=== PATIENT | female | born 1935 | race Caucasian/White ===

== ENCOUNTER 2017-05-21 13:01 | Inpatient (IN) | payer MEDICARE, BC, OTHER ==
[~2017-05-21] VITALS: Ht 167.6 cm; Wt 59.2 kg
[~2017-05-21 13:01] MED LIST: ARIP15TA8 PO; ATI0.5T PO; CYA500T PO; DOCU50LI22 PO; DONE10TA6 PO; INUL1TAB4; MEMA5TAB40 PO; SYN0.088T PO; VALP250S3 PO
[2017-05-21 14:36] VITALS: BP 106/77
[2017-05-21] MEDS ORDERED: magnesium Cl slow-release 64mg tablet PO PRN (15:40)
[2017-05-21] MEDS ORDERED: acetaminophen 325mg tablet PO PRN ×2 (15:40)
[2017-05-21] MEDS ORDERED: mag hydrox/Alum hydrox/simeth 30ml oral suspension PO PRN (15:40)
[2017-05-21] MEDS ORDERED: potassium Cl 20 mEq SR tablet PO PRN (15:40)
[2017-05-21] MEDS ORDERED: magnesium hydroxide 30ml (MOM) UD suspension PO PRN (15:40)
[2017-05-21] MEDS: K and/or MAG REPLACEMENT MC SCH (15:40)
[2017-05-21] MEDS ORDERED: magnesium 4gm in 100ml NS 100 ML IV PRN (15:40)
[2017-05-21] MEDS ORDERED: heparin 10,000 units/1 ML INJ IV ONE (15:40)
[2017-05-21] MEDS ORDERED: potassium Cl 40MEQ/NS 500ml 500 ML IV PRN ×2 (15:40)
[2017-05-21] MEDS ORDERED: magnesium 2GM in 50ml NS 50 ML IV PRN (15:40)
[2017-05-21] MEDS ORDERED: ondansetron/PF 4mg/2ml inj IV PRN (15:40)
[2017-05-21 16:07] LABS: BASOPHILS # (AUTO) 0.1 X10'3 (0-0.2); BASOPHILS % (AUTO) 0.9 % (0-1); EOSINOPHILS # (AUTO) 0.2 X10'3 (0-0.9); HEMATOCRIT 36.1 % (35.0-45.0); HEMOGLOBIN 12.3 g/dl (12.0-16.0); LYMPHOCYTES # (AUTO) 1.5 X10'3 (1.1-4.8); LYMPHOCYTES % (AUTO) 18.7 % (21-51); MEAN CORPUSCULAR HGB CONC 34.1 % (33.0-36.5); MEAN PLATELET VOLUME 7.7 FL (7.4-10.4); MONOCYTES # (AUTO) 0.6 X10'3 (0-0.9); MONOCYTES % (AUTO) 8.3 % (2-12); NEUTROPHILS # (AUTO) 5.5 X10'3 (1.8-7.7); NEUTROPHILS % (AUTO) 70.1 % (42-75); PLATELET COUNT 259 X10'3 (140-440); RED BLOOD COUNT 3.97 X10'6 (4.20-5.60); RED CELL DISTRIBUTION WIDTH 15.1 % (11.5-14.5); WHITE BLOOD COUNT 7.8 X10'3 (4.5-11.0)
[2017-05-21 16:18] LABS: PARTIAL THROMBOPLASTIN TIME 32 SECONDS (22-32)
[2017-05-21 16:23] LABS: ALANINE AMINOTRANSFERASE 19 U/L (12-78); ALBUMIN/GLOBULIN RATIO 0.9 (1.1-1.5); ALKALINE PHOSPHATASE 56 IU/L (46-116); ANION GAP 6 (8-16); ASPARTATE AMINO TRANSFERASE 14 U/L (10-37); BILIRUBIN,TOTAL 0.4 MG/DL (0.1-1.0); BLOOD UREA NITROGEN 10 MG/DL (7-18); CALCIUM 8.8 MG/DL (8.5-10.1); CHLORIDE 102 MMOL/L (99-107); CREATININE 1.25 MG/DL (0.40-0.90); GLUCOSE 104 MG/DL (70-104); MAGNESIUM 1.8 MG/DL (1.5-2.4); POTASSIUM 4.1 MMOL/L (3.5-5.1); SODIUM 135 MMOL/L (135-145); TOTAL CARBON DIOXIDE 27.4 MMOL/L (24-32); TOTAL PROTEIN 6.5 G/DL (6.4-8.2); eGFR 41 ML/MIN
[2017-05-21] MEDS: CEFAZOLIN SODIUM/NORMAL SALINE 100 ML IV SCH (16:53)
[2017-05-21 20:00] VITALS: BP 124/57
[2017-05-21] MEDS ORDERED: temazepam 15mg capsule PO PRN (21:00)
[2017-05-22] VITALS: BP 140/71
[2017-05-22 00:58] LABS: PARTIAL THROMBOPLASTIN TIME 43 SECONDS (22-32)
[2017-05-22] MEDS: CEFAZOLIN SODIUM/NORMAL SALINE 100 ML IV SCH ×3 (01:51→16:18)
[2017-05-22] MEDS: heparin 10,000 units/1 ML INJ IV PRN ×2 (01:55→17:46)
[2017-05-22 03:30] VITALS: BP 150/83
[2017-05-22 05:38] LABS: BASOPHILS # (AUTO) 0.1 X10'3 (0-0.2); BASOPHILS % (AUTO) 0.8 % (0-1); EOSINOPHILS # (AUTO) 0.2 X10'3 (0-0.9); EOSINOPHILS % (AUTO) 2.9 % (0-6); HEMATOCRIT 35.1 % (35.0-45.0); HEMOGLOBIN 11.9 g/dl (12.0-16.0); LYMPHOCYTES # (AUTO) 1.4 X10'3 (1.1-4.8); LYMPHOCYTES % (AUTO) 20.2 % (21-51); MEAN CORPUSCULAR HGB CONC 34.1 % (33.0-36.5); MEAN CORPUSCULAR VOLUME 91.2 FL (78-98); MEAN PLATELET VOLUME 8.6 FL (7.4-10.4); MONOCYTES # (AUTO) 0.4 X10'3 (0-0.9); MONOCYTES % (AUTO) 6.2 % (2-12); NEUTROPHILS # (AUTO) 4.8 X10'3 (1.8-7.7); NEUTROPHILS % (AUTO) 69.9 % (42-75); PLATELET COUNT 232 X10'3 (140-440); RED BLOOD COUNT 3.85 X10'6 (4.20-5.60); WHITE BLOOD COUNT 6.9 X10'3 (4.5-11.0)
[2017-05-22 06:54] LABS: ALBUMIN 2.9 G/DL (3.4-5.0); ANION GAP 11 (8-16); BLOOD UREA NITROGEN 9 MG/DL (7-18); BUN/CREATININE RATIO 7.9 (6.6-38.0); CHLORIDE 104 MMOL/L (99-107); CHOL/HDL RATIO 5.2 (0.00-4.99); CHOLESTEROL 225 MG/DL (0-200); CREATININE 1.14 MG/DL (0.40-0.90); GLUCOSE 91 MG/DL (70-104); HDL CHOLESTEROL 43 MG/DL (35-60); LDL CHOLESTEROL 161 MG/DL (50-100); MAGNESIUM 1.9 MG/DL (1.5-2.4); SODIUM 137 MMOL/L (135-145); TOTAL CARBON DIOXIDE 22.3 MMOL/L (24-32); TRIGLYCERIDES 111 MG/DL (20-135); eGFR 46 ML/MIN
[2017-05-22 08:00] VITALS: BP 110/59
[2017-05-22] MEDS: K and/or MAG REPLACEMENT MC SCH (08:00)
[2017-05-22 08:33] LABS: PARTIAL THROMBOPLASTIN TIME 61 SECONDS (22-32)
[2017-05-22] MEDS: sodium bicarbonate (8.4%) inj. 100 MEQ in sodium chloride 0.45% 1,000 ML IV SCH ×2 (09:29→19:02)
[2017-05-22 13:33] LABS: CLARITY,URINE CLEAR (Clear); COLOR,URINE YELLOW (Yellow); GLUCOSE, URINE NEGATIVE (Neg); KETONES,URINE NEGATIVE (Neg); LEUKOCYTE ESTERASE ,URINE NEGATIVE (Neg); NITRITES, URINE NEGATIVE (Neg); OCCULT BLOOD,URINE NEGATIVE (Neg); PROTEIN,URINE NEGATIVE (Neg); UROBILINOGEN,URINE 0.2 E.U/dL (0.2-1.0)
[2017-05-22 13:39] LABS: UA COLLECTION TYPE STRAIGHT CATH
[2017-05-22 17:23] LABS: PARTIAL THROMBOPLASTIN TIME 43 SECONDS (22-32)
[2017-05-22 20:00] VITALS: BP 112/76
[2017-05-23] VITALS: BP 126/74
[2017-05-23 00:30] LABS: PARTIAL THROMBOPLASTIN TIME 70 SECONDS (22-32)
[2017-05-23] MEDS: CEFAZOLIN SODIUM/NORMAL SALINE 100 ML IV SCH ×3 (00:45→16:28)
[2017-05-23] MEDS: sodium bicarbonate (8.4%) inj. 100 MEQ in sodium chloride 0.45% 1,000 ML IV SCH ×2 (00:45→12:29)
[2017-05-23 06:12] LABS: BASOPHILS # (AUTO) 0.1 X10'3 (0-0.2); BASOPHILS % (AUTO) 1.1 % (0-1); EOSINOPHILS # (AUTO) 0.1 X10'3 (0-0.9); EOSINOPHILS % (AUTO) 3.1 % (0-6); HEMATOCRIT 33.7 % (35.0-45.0); HEMOGLOBIN 11.3 g/dl (12.0-16.0); LYMPHOCYTES # (AUTO) 1.4 X10'3 (1.1-4.8); LYMPHOCYTES % (AUTO) 30.9 % (21-51); MEAN CORPUSCULAR HEMOGLOBIN 30.7 PG (27.0-31.0); MEAN CORPUSCULAR HGB CONC 33.5 % (33.0-36.5); MEAN CORPUSCULAR VOLUME 91.5 FL (78-98); MEAN PLATELET VOLUME 8.6 FL (7.4-10.4); MONOCYTES # (AUTO) 0.4 X10'3 (0-0.9); MONOCYTES % (AUTO) 7.6 % (2-12); NEUTROPHILS # (AUTO) 2.7 X10'3 (1.8-7.7); NEUTROPHILS % (AUTO) 57.3 % (42-75); PLATELET COUNT 214 X10'3 (140-440); RED BLOOD COUNT 3.69 X10'6 (4.20-5.60); RED CELL DISTRIBUTION WIDTH 14.9 % (11.5-14.5); WHITE BLOOD COUNT 4.7 X10'3 (4.5-11.0)
[2017-05-23 06:23] LABS: ALBUMIN 2.6 G/DL (3.4-5.0); ANION GAP 6 (8-16); BLOOD UREA NITROGEN 6 MG/DL (7-18); BUN/CREATININE RATIO 7.1 (6.6-38.0); CALCIUM 8.4 MG/DL (8.5-10.1); CHLORIDE 107 MMOL/L (99-107); CREATININE 0.84 MG/DL (0.40-0.90); GLUCOSE 89 MG/DL (70-104); MAGNESIUM 1.8 MG/DL (1.5-2.4); POTASSIUM 3.4 MMOL/L (3.5-5.1); SODIUM 141 MMOL/L (135-145); TOTAL CARBON DIOXIDE 27.8 MMOL/L (24-32); eGFR 65 ML/MIN
[2017-05-23] MEDS ORDERED: levoTHYROXINE 88mcg tablet PO SCH (07:00)
[2017-05-23 07:56] VITALS: BP 132/54
[2017-05-23] MEDS: K and/or MAG REPLACEMENT MC SCH (08:00)
[2017-05-23] MEDS: levoTHYROXINE 100mcg tablet PO SCH (08:35)
[2017-05-23] MEDS: potassium Cl 20 mEq SR tablet PO PRN ×2 (08:42→13:56)
[2017-05-23 11:00] VITALS: BP 139/61
[2017-05-23] MEDS ORDERED: LORazepam 2 mg/ml vial IV ONE (11:15)
[2017-05-23] MEDS: heparin 10,000 units/1 ML INJ IV PRN (12:12)
[2017-05-23] MEDS: lactobacillus rhamnosus 10,000 MMU CELLS/CAPSULE PO SCH (17:19)
[2017-05-23 20:00] VITALS: BP 153/66
[2017-05-23] MEDS ORDERED: atorvastatin 20mg tablet PO SCH (21:00)
[2017-05-24] MEDS ORDERED: normal saline 1000ml 1,000 ML IV SCH (07:00)
[2017-05-24] MEDS: levoTHYROXINE 100mcg tablet PO SCH (07:00)
[2017-05-24 07:05] VITALS: BP 159/65
[2017-05-24] MEDS: lactobacillus rhamnosus 10,000 MMU CELLS/CAPSULE PO SCH (07:30)
[2017-05-24 11:20] VITALS: BP 142/64
[2017-05-24] MEDS ORDERED: LEVO100T9 PO (13:51)
[2017-05-25] MEDS ORDERED: LACTOBACILLUS RHAMNOSUS GG 15 billion unit sprinkle caps PO SCH (07:30)
== END 2017-05-24 16:11 | disposition hospice, home (50) | DRG 300 ==
LOC: SUR 3N 14:17
PROVIDERS: ADMIT Family Medicine; ATTEND Family Medicine
PROC: B4201ZZ Computerized Tomography (CT Scan) of Abdominal Aorta using Low Osmolar Contrast (ICD-10-PCS; principal; 2017-05-23)
PROC: B4281ZZ Computerized Tomography (CT Scan) of Bilateral Renal Arteries using Low Osmolar Contrast (ICD-10-PCS; 2017-05-23)
PROC: B42H1ZZ Computerized Tomography (CT Scan) of Bilateral Lower Extremity Arteries using Low Osmolar Contrast (ICD-10-PCS; 2017-05-23)
PROC: B4211ZZ Computerized Tomography (CT Scan) of Celiac Artery using Low Osmolar Contrast (ICD-10-PCS; 2017-05-23)
PROC: B42H1ZZ Computerized Tomography (CT Scan) of Bilateral Lower Extremity Arteries using Low Osmolar Contrast (ICD-10-PCS; 2017-05-23)
DX: I70.262 Atherosclerosis of native arteries of extremities with gangrene, left leg (principal); L03.116 Cellulitis of left lower limb; N17.9 Acute kidney failure, unspecified; L97.529 Non-pressure chronic ulcer of other part of left foot with unspecified severity; G30.9 Alzheimer's disease, unspecified; F02.80 Dementia in other diseases classified elsewhere, unspecified severity, without behavioral disturbance, psychotic disturbance, mood disturbance, and anxiety; E03.9 Hypothyroidism, unspecified; E78.5 Hyperlipidemia, unspecified; E87.6 Hypokalemia; N18.9 Chronic kidney disease, unspecified; Z51.5 Encounter for palliative care; Z66 Do not resuscitate; Z86.73 Personal history of transient ischemic attack (TIA), and cerebral infarction without residual deficits; Z87.891 Personal history of nicotine dependence
CPT/HCPCS: 36415; 75635; 80048; 80053; 80061; 81003; 83735; 84443; 85025; 85610; 85730; 93005; 93306; 93922; 93925; 97110; 97116; 97161; A4353; A6446; J0690; J1644; J2060; J7030